=== PATIENT | female | born 1995 | race Caucasian/White ===

== ENCOUNTER 2022-02-03 20:42 | Emergency (ER) | payer OTHER ==
[~2022-02-03] VITALS: Ht 165.1 cm; Wt 75.0 kg
[2022-02-03 20:53] VITALS: TEMP 98.1
[2022-02-03] MEDS ORDERED: NAPROSYN500 MG PO (21:20)
[2022-02-03] MEDS ORDERED: NORCO 325 MG-51 TAB PO (21:20)
[2022-02-03 22:00] VITALS: BP 118/72; PULSE 78
[2022-02-04] MEDS ORDERED: NORCO 325 MG-51 TAB PO (13:50)
[2022-02-04] MEDS ORDERED: NAPROSYN500 MG PO (13:50)
== END 2022-02-03 22:00 | disposition home or self-care (01) ==
LOC: COL.ER 20:42
DX: S83.91XA Sprain of unspecified site of right knee, initial encounter (principal); W10.9XXA Fall (on) (from) unspecified stairs and steps, initial encounter